=== PATIENT | female | born 1995 | race Caucasian/White ===

== ENCOUNTER 2022-12-09 21:39 | Inpatient (IN) | payer BC, OTHER ==
[~2022-12-09 21:39] MED LIST: Bupivacaine 0.25% HCL 30 ML VIAL ONE; ePHEDrine Sulfate 50 MG/10 ML VIAL ONE
[2022-12-09] MEDS ORDERED: fentaNYL 50 mcg/mL 1 mL Vial SLOW IVP PRN (21:54)
[2022-12-09] MEDS ORDERED: hydrALAZINE 20 MG/ML VIAL SLOW IVP PRN (21:54)
[2022-12-09] MEDS ORDERED: NS w/ Oxytocin 30 units 500 ML IV SCH ×3 (21:54)
[2022-12-09] MEDS ORDERED: HYDROcodone/Acetaminophen 5/325 mg Tablet PO PRN ×2 (21:54)
[2022-12-09] MEDS ORDERED: Lactated Ringer's 1,000 ML IV SCH (21:54)
[2022-12-09] MEDS ORDERED: Ibuprofen 800 MG TAB PO PRN (21:54)
[2022-12-09] MEDS ORDERED: Penicillin G 2.5 MILL.units 2.5 MILL.UNITS in Premix Bag 1 BAG IVPB SCH (21:54)
[2022-12-09] MEDS ORDERED: Promethazine HCl 25 MG/ML VIAL IM PRN ×2 (21:54→23:23)
[2022-12-09] MEDS ORDERED: Penicillin G Potassium 5 MILL.UNITS in Sodium Chloride 0.9% 100 ML IVPB SCH (21:54)
[2022-12-09] MEDS ORDERED: Ondansetron PF 4 MG/2 ML Vial IVP PRN ×2 (21:54→23:23)
[2022-12-09] MEDS ORDERED: Lidocaine 1% (PF) 30 ML VIAL SC PRN (21:54)
[2022-12-09 22:49] LABS: Hemoglobin 10.8 g/dL (12.0-15.5); Mean Corpuscular HGB CONC 30.9 g/dL (32.0-36.0); Mean Corpuscular Hemoglobin 23.3 pg (27.0-33.0); Mean Corpuscular Volume 75.6 fl (81.6-98.3); Platelet Count 366 10x3/uL (150-450); RBC Distribution Width 15.9 % (11.5-14.5); Red Blood Cell (RBC) Count 4.63 10x6/uL (3.90-5.03); White Blood Cell (WBC) Count 12.1 10x3/uL (3.5-10.5)
[2022-12-09] MEDS ORDERED: Fentanyl 2 mcg/Bup 0.1% Cadd 100 ML ONE (22:59)
[2022-12-09] MEDS ORDERED: CEFAZOLIN 1 GM in Sodium Chloride 0.9% 100 ML IVPB SCH (23:00)
[2022-12-09 23:22] LABS: Syphilis Antibody Nonreactive (Nonreactive); Syphilis Antibody Index 0.07 S/CO (<1.00 Non-Reactive)
[2022-12-09] MEDS ORDERED: Moisturizing Cream (Eucerin) 113 GM JAR TOP PRN (23:23)
[2022-12-09] MEDS ORDERED: Lactated Ringer's 500 ML IV PRN (23:23)
[2022-12-09] MEDS ORDERED: diphenhydrAMINE 50 MG/ML VIAL IVP PRN (23:23)
[2022-12-09] MEDS ORDERED: Acetaminophen 325 MG TAB PO PRN (23:23)
[2022-12-09] MEDS ORDERED: Naloxone HCl 0.4 mg/ml Vial IVP PRN ×2 (23:23)
[2022-12-09] MEDS ORDERED: ePHEDrine Sulfate 50 MG/10 ML VIAL SLOW IVP PRN (23:23)
[2022-12-09 23:24] LABS: HBSAg Index 0.15 S/CO (0-0.99); Hep B Surf Ag - L&D Non-Reactive S/CO (NonReactive)
[2022-12-09] MEDS ORDERED: Fentanyl 2 mcg/Bupivacaine 0.1% Cassette 100 ML EPIDURAL SCH (23:30)
[2022-12-09] MEDS ORDERED: Communication Order-Pharmacy FS SCH (23:30)
[2022-12-10] MEDS ORDERED: Moisturizing Cream (Eucerin) 113 GM JAR TOP PRN (02:49)
[2022-12-10] MEDS ORDERED: diphenhydrAMINE 50 MG/ML VIAL IVP PRN (02:49)
[2022-12-10] MEDS ORDERED: Acetaminophen 325 MG TAB PO PRN (02:49)
[2022-12-10] MEDS ORDERED: Promethazine HCl 25 MG/ML VIAL IM PRN (02:49)
[2022-12-10] MEDS ORDERED: ePHEDrine Sulfate 50 MG/10 ML VIAL SLOW IVP PRN (02:49)
[2022-12-10] MEDS ORDERED: Lactated Ringer's 500 ML IV PRN (02:49)
[2022-12-10] MEDS ORDERED: Ondansetron PF 4 MG/2 ML Vial IVP PRN ×2 (02:49→13:18)
[2022-12-10] MEDS ORDERED: Naloxone HCl 0.4 mg/ml Vial IVP PRN ×2 (02:49)
[2022-12-10] MEDS ORDERED: Fentanyl 2 mcg/Bupivacaine 0.1% Cassette 100 ML EPIDURAL SCH (03:00)
[2022-12-10] MEDS ORDERED: Communication Order-Pharmacy FS SCH (03:00)
[2022-12-10] MEDS ORDERED: CEFAZOLIN 1 GM in Sodium Chloride 0.9% 100 ML IVPB SCH (06:00)
[2022-12-10] MEDS ORDERED: HYDROcodone/Acetaminophen 5/325 mg Tablet PO PRN ×2 (13:18)
[2022-12-10] MEDS ORDERED: Lanolin Ointment 7 GM TUBE TOP PRN (13:18)
[2022-12-10] MEDS ORDERED: Boostrix 0.5 ML (Tdap) VIAL (>/=7 yrs of age) IM ONE (13:18)
[2022-12-10] MEDS ORDERED: hydrALAZINE 20 MG/ML VIAL SLOW IVP PRN (13:18)
[2022-12-10] MEDS ORDERED: diphenhydrAMINE 25 MG CAP PO PRN (13:18)
[2022-12-10] MEDS ORDERED: Benzocaine-Menthol 82.5 ML CAN TOP PRN (13:18)
[2022-12-10] MEDS ORDERED: Milk Of Magnesia 30 ML UDCUP PO PRN (13:18)
[2022-12-10] MEDS ORDERED: Preparation H Ointment 28 GM TUBE PR PRN (13:18)
[2022-12-10] MEDS ORDERED: Bisacodyl 10 MG SUPP PR PRN (13:18)
[2022-12-10] MEDS ORDERED: NS w/ Oxytocin 30 units 500 ML IV SCH (13:18)
[2022-12-10] MEDS: Ibuprofen 800 MG TAB PO SCH ×2 (16:50→21:00)
[2022-12-10] MEDS: Ferrous Sulfate 325 MG TAB PO SCH (16:50)
[2022-12-10] MEDS: Docusate 100 MG CAP PO SCH (21:01)
[2022-12-11] MEDS: Ibuprofen 800 MG TAB PO SCH ×3 (05:55→21:06)
[2022-12-11] MEDS: Docusate 100 MG CAP PO SCH ×2 (08:38→21:06)
[2022-12-11] MEDS: Prenatal Vitamin 1 TAB PO SCH (08:38)
[2022-12-11] MEDS: Ferrous Sulfate 325 MG TAB PO SCH ×2 (08:39→17:58)
[2022-12-12] MEDS: Ibuprofen 800 MG TAB PO SCH (05:49)
[2022-12-12 07:54] VITALS: BP 102/67; TEMP 98.6
[2022-12-12] MEDS: Docusate 100 MG CAP PO SCH (08:21)
[2022-12-12] MEDS: Prenatal Vitamin 1 TAB PO SCH (08:21)
[2022-12-12] MEDS: Ferrous Sulfate 325 MG TAB PO SCH (08:23)
== END 2022-12-12 12:15 | disposition home or self-care (01) | DRG 807 ==
LOC: CSHLD 21:39 → CSHPP 12-10 13:59
PROVIDERS: ADMIT Obstetrics & Gynecology; ATTEND Obstetrics & Gynecology
PROC: 10E0XZZ Delivery of Products of Conception, External Approach (ICD-10-PCS; principal; 2022-12-10)
PROC: 0KQM0ZZ Repair Perineum Muscle, Open Approach (ICD-10-PCS; 2022-12-10)
DX: O42.02 Full-term premature rupture of membranes, onset of labor within 24 hours of rupture (principal); Z37.0 Single live birth; O99.824 Streptococcus B carrier state complicating childbirth; Z3A.40 40 weeks gestation of pregnancy; Z88.0 Allergy status to penicillin; O70.1 Second degree perineal laceration during delivery
CPT/HCPCS: 36415; 51702; 85027; 86780; 86850; 86900; 86901; 87340; J0690; J2405; J2590; J3490; S0020